=== PATIENT | male | born 1985 | race Caucasian/White ===

== ENCOUNTER 2016-06-17 18:38 | Emergency (ER) | payer BC, OTHER ==
[2016-06-17 19:00] VITALS: TEMP 98.3; BMI 29.8
--- NOTE | 2016-06-17 19:11 | PDOC ---
History of Present Illness - General History Source: Patient Exam Limitations: No Limitations - History of Present Illness Initial Comments: 06/17/16 19:27 The patient is a 30 year old male, with a significant past medical history a left knee arthroscopy, who presents to the emergency department with complaints of difficulty breathing and shortness of breath for several days. The patient reports that he was at physical therapy on Sunday and described his symptoms to the therapist who told him he should go see his doctor for an ultrasound. The patient went to [facility] earlier today and had an ultrasound done shortly before they were closing. The development technologist stated that the report was negative but since they were closing he told him he should go to the emergency room for further workup. The patient states that he is experiencing shortness of breath when he is sitting and standing up, and his shortness of breath is exacerbated upon exertion. He denies having any chest pain. The patient reports that he takes medication for his seasonal allergies but notes no recent exacerbations. PAST MEDICAL HISTORY: no significant history PAST SURGICAL HISTORY: Arthroscopy of the left knee. FAMILY HISTORY: no pertinent history SOCIAL HISTORY: Pt denies smoking or illicit drug use. Reports social alcohol use. MEDICATIONS: reviewed ALLERGIES: Seasonal General: No fevers or chills, no weakness, no weight loss HEENT: No change in vision. No sore throat,. No ear pain CardioVascular: +Shortness of breath, +Difficulty breathing No chest pain Respiratory: No cough, or wheezing. Gastrointestinal: no nausea, vomiting, diarrhea or constipation, No rectal bleeding Genitourinary: No dysuria, hematuria, or frequency Musculoskeletal: No joint or muscle pain or swelling Neurologic: No headache, vertigo, dizziness or loss of consciousness Psychiatric: no depression Skin: No rashes or easy bruising Endocrine: no increased thirst or abnormal weight change Allergic: no skin or latex allergy All other systems reviewed and normal General: Well nourished well developed individual, no acute distress HEENT: Throat: Normal, tonsils normal, no erythema or exudate Neck: Supple, no meningeal signs, no lymphadenopathy Eyes:Pupils equal reactive and round, extraocular motion intact Chest: Nontender to palpation Cardiac: S1S2 normal, regular rate and rhythm, no murmurs rubs or gallops Respiratory: Lungs clear to auscultation bilateral Abdomen: Soft, nondistended, normal bowel sounds, nontender to palpation diffusely Extremities: + Left knee swelling and mild redness. No increase in warmth. There are 2 incisions from arthroscopy that are covered with a bandaid. No calf tenderness. Neurovascular is intact. Warm, dry, no cyanosis, clubbing Skin: No rashes Neuro: Alert and oriented x3, nonfocal exam, grossly intact, normal gait Psych: Normal mood and affect <Ivanna Crook - Last Filed: 06/17/16 19:27> - General History Source: Patient Exam Limitations: No Limitations - History of Present Illness Initial Comments: 06/17/16 21:08 A portion of this note was documented by scribe services under my direction. I have reviewed the details of the note, within reason, and agree with the documentation. The case summary and management plan written by me. 06/17/16 21:40 CT scan was done and does show some motion artifact no evidence of central emboli however due to motion artifact it cannot be definitively read. Otherwise no acute or gross pathology seen on the CAT scan Assessment and plan: This is a 30-year-old male who comes in complaining of several days of a sensation that he feels short of breath. Here in the emergency room patient's vitals were normal with a normal O2 sat. Patient's lungs were clear on my exam and he is comfortable throughout his stay here in the emergency room. Patient had blood work done that shows no evidence of infection and a CT Angio of his chest was done to rule out PE even though he had had an ultrasound done earlier in the day that was reported preliminarily as negative for any DVT. Patient's CAT scan was not definitive secondary to motion artifact. Given the fact that his vitals are all normal he had a reported negative Doppler ultrasound for DVT and there is no evidence of gross pathology on his CAT scan including no evidence of central emboli. Patient discharged home will follow-up with his doctor if symptoms persist. <Farida Beltran I - Last Filed: 06/17/16 21:43> - General Chief Complaint: Respiratory Stated Complaint: feels short of breath Time Seen by Provider: 06/17/16 19:05 Past History <Ivanna Crook - Last Filed: 06/17/16 19:27> - Past Medical History Suicide Attempt (Hx): No Other medical history: SEASONAL ALLERGY - Immunization History Td Vaccination: Yes TDAP Vaccination: Yes Immunization Up to Date: Yes - Psycho/Social/Smoking Cessation Hx Anxiety: No Suicidal Ideation: No Smoking Status: No Smoking History: Never smoked Years of Tobacco Use: 0 Have you smoked in the past 12 months: No Number of Cigarettes Smoked Daily: 0 Cigars Per Day: 0 Hx Alcohol Use: Yes (SOCIAL) Drug/Substance Use Hx: No Substance Use Type: Alcohol <Farida Betlran I - Last Filed: 06/17/16 21:43> - Past Medical History Allergies/Adverse Reactions: Allergies Allergy/AdvReac Type Severity Reaction Status Date / Time No Known Allergies Allergy Verified 06/17/16 18:39 Home Medications: Ambulatory Orders NK [No Known Home Medication] 06/17/16 *Physical Exam - Vital Signs Last Vital Signs Temp Pulse Resp BP Pulse Ox 98.3 F 98 H 16 122/80 98 06/17/16 18:39 06/17/16 19:15 06/17/16 19:15 06/17/16 19:15 06/17/16 19:15 <Ivanna Crook - Last Filed: 06/17/16 19:27> - Vital Signs Last Vital Signs Temp Pulse Resp BP Pulse Ox 98.3 F 93 H 16 152/100 99 06/17/16 18:39 06/17/16 18:39 06/17/16 18:39 06/17/16 18:39 06/17/16 18:39 <Farida Beltran I - Last Filed: 06/17/16 21:43> ED Treatment Course - LABORATORY CBC & Chemistry Diagram: 06/17/16 19:06 06/17/16 19:06 <Ivanna Crook - Last Filed: 06/17/16 19:27> - LABORATORY CBC & Chemistry Diagram: 06/17/16 19:06 06/17/16 19:06 <Farida Beltran I - Last Filed: 06/17/16 21:43> *DC/Admit/Observation/Transfer - Attestations Scribe Attestion: 06/17/16 19:27 Documentation prepared by JACQUELYN Briones, acting as medical biller coder for Farida Beltran MD. <Ivanna Crook - Last Filed: 06/17/16 19:27> - Discharge Dispostion Admit: No <JudeannetteFarida Mg I - Last Filed: 06/17/16 21:43> Diagnosis at time of Disposition: Shortness of breath - Discharge Dispostion Disposition: HOME Condition at time of disposition: Stable - Patient Instructions Additional Instructions: It is very important that you follow-up with your primary care DrFabio next week if symptoms persist. In addition follow-up for a final definitive report on your ultrasound to make sure that it is negative. Return to the emergency department immediately with ANY new, persistent or worsening symptoms. Continue any medications as previously prescribed by your physician. You should follow up with your primary doctor as soon as possible regarding today's emergency department visit. . Please make sure your doctor reviews the results of your emergency evaluation. Thank you for coming to the Emergency Department today for your care. It was a pleasure to see you today. Please note that your evaluation is INCOMPLETE until you follow-up with your doctor.
[2016-06-17 19:22] VITALS: BP 122/80; PULSE 98
[2016-06-17 19:45] LABS: BASOPHIL 1.4 % (0-2.0); EOSINOPHIL 3.2 % (0-4.5); MCH 28.6 pg (25.7-33.7); MCHC 34.6 g/dl (32.0-35.9); MEAN CELL VOLUME 82.6 fl (80-96); MEAN PLT VOLUME 8.7 fl (7.5-11.1); NEUTROPHILS 52.5 % (42.8-82.8); PLATELET COUNT 207 K/MM3 (134-434)
[2016-06-17 19:51] LABS: ALBUMIN 4.5 g/dl (3.5-5.0); ALK PHOS 48 U/L (32-92); ANION GAP 8 (8-16); BILIRUBIN,TOTAL 0.4 mg/dl (0.2-1.0); CALCIUM 9.4 mg/dl (8.4-10.2); CO2 29 mmol/L (22-28); COCKROFT - GAULT 124.7; CPK(DFH) 165 IU/L (38-174); CREATININE 1.2 mg/dl (0.6-1.3); GLUCOSE,RANDOM 96 mg/dl (74-106); SGOT/AST 29 U/L (10-42); SGPT/ALT 48 U/L (10-40); TOT PROT 7.2 g/dl (6.4-8.3)
[2016-06-17] MEDS ORDERED: SODIUM CHLORIDE 1,000 ML IV ONE (19:53)
[2016-06-17 20:03] LABS: TROPONIN I (DFP) < 0.03 ng/ml (0.03-0.50)
[2016-06-17 20:24] LABS: CK MB 3.1 ng/ml (0.3-4.0)
--- NOTE | 2016-06-20 09:05 | EKG ---
Test Reason : Blood Pressure : / mmHG Vent. Rate : 090 BPM Atrial Rate : 090 BPM P-R Int : 160 ms QRS Dur : 074 ms QT Int : 352 ms P-R-T Axes : 040 026 006 degrees QTc Int : 430 ms NORMAL SINUS RHYTHM NONSPECIFIC T WAVE ABNORMALITY WHEN COMPARED WITH ECG OF 05-AUG-2008 14:12, QUESTIONABLE CHANGE IN QRS AXIS NONSPECIFIC T WAVE ABNORMALITY NOW EVIDENT IN INFERIOR LEADS NONSPECIFIC T WAVE ABNORMALITY NOW EVIDENT IN LATERAL LEADS Confirmed by MD DAMIAN, BRITTANY ([id number]) on 06/20/2016 9:05:17 AM Referred By: Marion DIALLO Confirmed By:BRITTANY SALGADO MD
== END 2016-06-17 21:46 | disposition home or self-care (01) ==
LOC: FER 18:38
PROC: 3E0337Z Introduction of Electrolytic and Water Balance Substance into Peripheral Vein, Percutaneous Approach (ICD-10-PCS; principal; 2016-06-17)
DX: R06.02 Shortness of breath (principal)
CPT/HCPCS: 36415; 71275-TC; 80053; 82550; 82553; 84484; 85025; 93005; 99283-25